=== PATIENT | female | born 1965 | race Caucasian/White ===

== ENCOUNTER → 2016-05-28 | Outpatient (CLI) | payer OTHER ==
--- NOTE | 2016-05-28 13:16 | DIAGNOSTIC IMAGING REPORT ---
CERVICAL SPINE MRI HISTORY: Pain. Neuropathy. CERVICAL RADICULOPATHY TECHNIQUE: Multiplanar multisequence MRI of the cervical spine was performed without the use of contrast. COMPARISON STUDY: None. FINDINGS: Normal signal characteristics of the vertebral bodies as well as intervertebral disc. Normal signal characteristics of the cervical cord within limitations of moderate patient motion C2-C3: No significant central canal or neural foraminal narrowing. C3-C4: No significant central canal or neural foraminal narrowing. C4-C5: No significant central canal or neural foraminal narrowing. C5-C6: No significant central canal or neural foraminal narrowing. C6-C7: No significant central canal or neural foraminal narrowing. C7-T1: No significant central canal or neural foraminal narrowing. IMPRESSION: Normal study Electronically signed by: Alek Treviño M.D. 05/28/2016 1:15 PM Dictated Date/Time: 05/28/2016 1:13 PM
== END | disposition home or self-care (01) ==
LOC: C.OPENMRI 12:05
PROVIDERS: ATTEND Pain Medicine Interventional Pain Medicine
DX: M54.12 Radiculopathy, cervical region (principal)

== ENCOUNTER → 2017-05-06 | Outpatient (CLI) | payer OTHER ==
--- NOTE | 2017-05-06 12:48 | DIAGNOSTIC IMAGING REPORT ---
MRI OF THE CERVICAL SPINE WITHOUT IV CONTRAST CLINICAL HISTORY: Cervical radiculopathy. Right-sided neck and shoulder pain. COMPARISON STUDY: MRI of the cervical spine dated 05/28/2016. TECHNIQUE: MRI of the cervical spine is performed utilizing various T1 and T2 weighted sequences in the axial and sagittal planes. IV contrast was not administered for this examination. FINDINGS: Cervical spine: Vertebral body height and alignment are maintained throughout the cervical spine. There is straightening of the cervical lordosis. The atlantodental articulation appears maintained. The spinous processes are intact. No destructive osseous lesion is seen. Intervertebral discs: Mild degenerative disc desiccation is noted. There is minimal loss of height at C5-C6. Spinal cord: The cervical spinal cord is normal in morphology and signal intensity. C2-C3: Unremarkable. C3-C4: Unremarkable. C4-C5: There is a tiny central posterior disc osteophyte complex. This minimally effaces the ventral subarachnoid space. The neural foramina are widely patent. C5-C6: A posterior disc osteophyte complex effaces the ventral subarachnoid space. Mild facet arthropathy is of no consequence. The neural foramina are clear. C6-C7: A tiny posterior disc osteophyte complex is eccentric to the right. The central canal and neural foramina are clear. C7-T1: The central canal and neural foramina are widely patent. A 6 mm nerve sheath cyst is incidentally noted in the right neural foramen. Soft tissues: The prevertebral and paraspinous soft tissues are within normal limits. Brain parenchyma: The partially imaged brain parenchyma at the skull base is normal in appearance. Mucosal thickening is noted in the sphenoid sinuses. IMPRESSION: 1. There is no disc herniation, high-grade central canal stenosis, or significant neural foraminal stenosis seen throughout the cervical spine. 2. Mild degenerative disc disease as above. 3. The cervical spinal cord is normal in morphology and signal intensity. Dictated: 05/06/2017 11:59 AM Transcribed: 05/06/2017 12:47 PM [place] Electronically signed by: Zach Gillis M.D. 05/06/2017 12:52 PM Dictated Date/Time: 05/06/2017 11:59 AM
== END | disposition home or self-care (01) ==
LOC: C.MRIBC 10:51
PROVIDERS: ATTEND Pain Medicine Interventional Pain Medicine
DX: M50.122 Cervical disc disorder at C5-C6 level with radiculopathy (principal)

== ENCOUNTER → 2017-08-19 | Outpatient (CLI) | payer OTHER ==
--- NOTE | 2017-08-19 15:20 | DIAGNOSTIC IMAGING REPORT ---
MRI OF THE LUMBAR SPINE WITHOUT CONTRAST CLINICAL HISTORY: Lumbar radiculopathy. Persistent low back pain. COMPARISON STUDY: No previous studies for comparison. TECHNIQUE: Utilizing a 1.5 Ana magnet and dedicated coil, multiplanar, multiecho imaging of the lumbar spine was performed without IV contrast. FINDINGS: For purposes of numbering on this exam, the L5-S1 disc space is assigned to axial image 23 of 25. Alignment of the lumbar spine is anatomic. Vertebral body heights are maintained. There is no marrow replacement. Conus terminates at the mid L1 level. Paravertebral soft tissues are unremarkable. L1-2: There is a small central disc extrusion with superior subligamentous migration. This results in minimal central canal narrowing. The neural foramen are patent. L2-3: The central canal and neural foramen are patent. L3-4: The central canal and neural foramen are patent. L4-5: The central canal and neural foramen are patent. L5-S1: There is moderate disc space narrowing. There is a small left foraminal disc osteophyte complex. Central canal and neural foramen are patent. IMPRESSION: 1. Mild multilevel degenerative disc disease and facet arthrosis of the lumbar spine. 2. Small central disc extrusion at L1-L2 with superior subligamentous migration which results in minimal central canal narrowing. 3. Moderate disc space narrowing at L5-S1. Electronically signed by: Mat Cunningham M.D. 08/19/2017 3:18 PM Dictated Date/Time: 08/19/2017 3:00 PM
== END | disposition home or self-care (01) ==
LOC: C.MRIBC 14:03
PROVIDERS: ATTEND Pain Medicine Interventional Pain Medicine
DX: M51.36 Other intervertebral disc degeneration, lumbar region (principal); M47.816 Spondylosis without myelopathy or radiculopathy, lumbar region; M51.26 Other intervertebral disc displacement, lumbar region; M48.061 Spinal stenosis, lumbar region without neurogenic claudication

== ENCOUNTER → 2017-11-13 | Outpatient (CLI) | payer OTHER ==
[~2017-11-13] MED LIST: ALPR-411 PO; CYCL5TAB PO; FLUT0.15 INTNAS
--- NOTE | 2017-11-13 12:16 | DIAGNOSTIC IMAGING REPORT ---
CHEST 2 VIEWS ROUTINE HISTORY: Preop. COMPARISON: None. FINDINGS: The lungs are clear. Cardiac silhouette is normal in size. No pleural effusions. No pneumothorax. IMPRESSION: No acute process. Electronically signed by: Ranjan Ortez M.D. 11/13/2017 12:14 PM Dictated Date/Time: 11/13/2017 12:13 PM
[2017-11-13 12:23] LABS: BLOOD UREA NITROGEN 14 mg/dl (7-18); CALCIUM 8.9 mg/dl (8.5-10.1); CARBON DIOXIDE 26 mmol/L (21-32); CREATININE 0.81 mg/dl (0.60-1.20); GLUCOSE 113 mg/dl (70-99); POTASSIUM 3.4 mmol/L (3.5-5.1); SODIUM 138 mmol/L (136-145)
[2017-11-13 12:25] LABS: BASO % 0.2 %; BASO ABS # 0.01 K/uL (0-0.2); EOS % 2.2 %; EOS ABS # 0.09 K/uL (0-0.5); HEMATOCRIT 40.2 % (37-47); HEMOGLOBIN 13.7 g/dL (12.0-16.0); LYMPH % 37.3 %; LYMPH ABS # 1.53 K/uL (1.2-3.4); MEAN CELL VOLUME 88.9 fL (80-100); MEAN CORPUSCULAR HEMOGLOBIN 30.3 pg (25-34); MEAN CORPUSCULAR HGB CONC 34.1 g/dl (32-36); MEAN PLATELET VOLUME 10.6 fL (7.4-10.4); MONO % 8.5 %; MONO ABS # 0.35 K/uL (0.11-0.59); NEUT % 51.8 %; NEUT ABS # 2.12 K/uL (1.4-6.5); PLATELET COUNT 258 K/uL (130-400); RED CELL DISTRIBUTION WIDTH CV 12.4 % (11.5-14.5); RED CELL DISTRIBUTION WIDTH SD 39.6 fL (36.4-46.3)
[2017-11-13 12:29] LABS: PTT PATIENT 27.5 SECONDS (21.0-31.0)
== END | disposition home or self-care (01) ==
LOC: C.CPL 11:05
PROVIDERS: ATTEND Orthopaedic Surgery Orthopaedic Surgery of the Spine
DX: Z01.818 Encounter for other preprocedural examination (principal)